=== PATIENT | female | born 1985 | race Hispanic/Latino ===

== ENCOUNTER 2023-04-23 23:21 | Emergency (ER) | payer SELFPAY ==
[2023-04-24] MEDS ORDERED: METOCLOPRAMIDE 10 MG/2mL INJ ONE (00:28)
[2023-04-24] MEDS ORDERED: NA CHLORIDE 0.9% 1,000 ML ONE (00:28)
[2023-04-24] MEDS ORDERED: DIPHENHYDRAMINE 50 MG/ML VIAL ONE (00:28)
[2023-04-24 00:43] LABS: Absolute Lymphocytes (CBC) 2.7 K/uL (0.7-4.9); Hematocrit 40.8 % (36.0-45.0); Lymphocytes % 29.4 % (15.3-44.8); MCV 88.3 fL (80-100); MPV 8.2 fL (7.6-11.3); Platelets 247 thou/uL (152-406); RBC Red Blood Cell Count 4.62 M/uL (3.86-4.86)
[2023-04-24 01:03] LABS: Albumin 3.4 g/dL (3.4-5.0); Bilirubin Total 0.5 mg/dL (0.2-1.0); Protein, Total 7.2 g/dL (6.4-8.2); Troponin High Sensitivity 5.1 pg/mL (<58.9)
--- NOTE | 2023-04-24 02:12 | EDPHYS ---
Physician Documentation [facility] Name: Ada Nash Age: 38 yrs Sex: Female : 1985 Arrival Date: 04/23/2023 Time: 23:21 Bed 5 Private MD: ED Physician Ras Cruz HPI: 04/23 23:38 This 38 yrs old Female presents to ER via Ambulatory with complaints of Chest Pain, ec2 Headache, Blurred Vision, High Blood Pressure. 23:52 Evaluation of chest tightness as well as headache and elevated blood pressure. States ec2 that she has been experiencing symptoms for approximately 1 week. States that the symptoms have been ongoing intermittent and progressed today which is what prompted evaluation today. Patient reports no vomiting, no diarrhea symptoms, no abdominal pain. States that the chest pain is more of a tightness and not an actual pain. Patient reports shortness of breath associated with this as well. Also complaining of a left-sided headache. States that she also feels some lightheadedness and dizziness.. Historical: - Allergies: 23:30 No Known Allergies; rv - Home Meds: 04/24 00:38 metoprolol tartrate 25 mg Oral tablet 1 tab 2 times per day [Active]; sertraline oral kl daily [Active]; - PMHx: 04/23 23:30 Hypertensive disorder; rv 04/24 00:38 Anxiety; kl - PSHx: 04/23 23:30 None; rv - Immunization history:: Adult Immunizations up to date. - Social history:: Smoking status: Patient denies any tobacco usage or history of. ROS: 23:52 Constitutional: as per hpi ec2 Exam: 23:52 Constitutional: GEN: NAD Head: atraumatic Eyes: EOMI Ears: External ears are ec2 normal. CV: regular rate LUNGS: no respiratory distress ABD: non-distended SKIN: no evidence of rashes MSK: no evidence of trauma NEURO: moves all extremities equally, cranial nerves II through XII intact, strength intact in all 4 extremities, normal [id number], negative pronator drift. Vital Signs: 23:28 BP 202 / 102; Pulse 104; Resp 19; Temp 98.3; Pulse Ox 100% ; Weight 122.47 kg; Height 5 rv ft. 3 in. ; 23:52 BP 152 / 73; Pulse 62; ec2 04/24 01:01 BP 153 / 90; Pulse 58; Resp 16 S; Pulse Ox 95% ; nw1 01:36 BP 144 / 96; Pulse 60; ec2 04/23 23:28 Body Mass Index 47.83 (122.47 kg, 160.02 cm) rv [place] Coma Score: 01:01 Eye Response: spontaneous(4). Motor Response: obeys commands(6). Verbal Response: nw1 oriented(5). Total: 15. MDM: 04/23 23:40 Patient medically screened. ec2 23:40 ED course: EKG independently reviewed and interpreted by me, shows normal sinus rhythm, ec2 rate of 92, no acute ST segment elevations, nonconcerning intervals.. 23:52 ED course: Patient arrives today for evaluation of multiple complaints. Examination ec2 remarkable for well-appearing nontoxic individual with reassuring cardiovascular, pulmonary and neurologic examination. Will obtain lab work, EKG, chest x-ray and treat the patient's symptoms. Currently considering process such as nonspecific headache syndrome, ACS, low suspicion for PE or dissection.. 04/24 01:02 ED course: On reassessment patient with improvement in her symptoms.. ec2 01:06 ED course: CBC and metabolic profile are reassuring, appropriate renal function noted. ec2 Troponin is within normal ranges. . 01:36 Data reviewed: vital signs. ED course: Chest x-ray independently reviewed and ec2 interpreted by me, shows borderline cardiomegaly.. 02:09 ED course: On reassessment patient reports complete resolution in her chest discomfort, ec2 headache and denies any active symptoms. Will discharge home. Return precautions given. I considered acute processes such as ACS, intracranial processes such as stroke and masses. I instructed her that she needs to follow-up with her primary care doctor to have further assessment for her borderline cardiomegaly. Return precautions given.. 04/23 23:52 Order name: CBC with Diff; Complete Time: 01:02 ec2 04/23 23:52 Order name: CMP; Complete Time: 01:05 ec2 04/23 23:52 Order name: Troponin HS; Complete Time: 01:05 ec2 04/23 23:52 Order name: CXR XRAY ec2 04/23 23:52 Order name: EKG; Complete Time: 23:53 ec2 04/23 23:52 Order name: EKG - Nurse/Tech; Complete Time: 00:37 ec2 Administered Medications: 00:36 Drug: diphenhydrAMINE IVP 25 mg IVP once Route: IVP; Site: right forearm; la4 00:37 Drug: NS 0.9% IV 1000 ml IV at 1 bolus Per protocol; 1000 mL bolus Route: IV; Rate: 1 la4 bolus; Site: right forearm; 00:37 Drug: metoCLOPramide IVP 10 mg IVP once; over 1 to 2 minutes Route: IVP; Site: left la4 forearm; Disposition Summary: 04/24/23 02:10 Discharge Ordered Condition: Stable ec2 Diagnosis - Essential (primary) hypertension ec2 - Headache ec2 - Chest pain, unspecified ec2 Discharge Instructions: - Discharge Summary Sheet ec2 - Nonspecific Chest Pain, Adult ec2 - General Headache Without Cause ec2 Forms: - Medication Reconciliation Form ec2 - Thank You Letter ec2 - Antibiotic Education ec2 - Prescription Opioid Use ec2 - Patient Portal Instructions ec2 - Leadership Thank You Letter ec2 Signatures: Dispatcher [employer] Deneen Joseph RN RN kl Vicente, Ronaldo, RN RN rv Corral, Edwin, MD MD ec2 Zenobia Mccarthy RN RN la4 Corrections: (The following items were deleted from the chart) 01:40 01:36 ED course: Chest x-ray independently reviewed and interpreted by me, shows no ec2 acute intrathoracic process.. ec2
--- NOTE | 2023-04-24 02:12 | ER ---
Nurse's Notes [facility] Name: Ada Nash Age: 38 yrs Sex: Female : 1985 Arrival Date: 04/23/2023 Time: 23:21 Bed 5 Private MD: Diagnosis: Essential (primary) hypertension;Headache;Chest pain, unspecified Presentation: 04/23 23:28 Chief complaint: Patient states: DIZZINESS FOR A FEW DAYS NOW, DENIES SOB, PALPITATIONS rv TODAY. DENIES CHEST PAIN. Coronavirus screen: At this time, the client does not indicate any symptoms associated with coronavirus-19. Ebola Screen: No symptoms or risks identified at this time. Initial Sepsis Screen: Does the patient meet any 2 criteria? No. Patient's initial sepsis screen is negative. Does the patient have a suspected source of infection? No. Patient's initial sepsis screen is negative. Risk Assessment: Do you want to hurt yourself or someone else? Patient reports no desire to harm self or others. Onset of symptoms was April 23, 2023. 23:28 Method Of Arrival: Ambulatory rv 23:28 Acuity: ARLINE 2 rv Triage Assessment: 23:30 General: Appears comfortable, Behavior is calm, cooperative. Pain: Denies pain. Neuro: rv Level of Consciousness is awake, alert, obeys commands, Oriented to person, place, time, situation. Cardiovascular: Capillary refill < 3 seconds Patient's skin is warm and dry. Chest pain is denied. Respiratory: Airway is patent Respiratory effort is even, unlabored. GI: No signs and/or symptoms were reported involving the gastrointestinal system. : No signs and/or symptoms were reported regarding the genitourinary system. Derm: Skin is intact. Historical: - Allergies: 23:30 No Known Allergies; rv - Home Meds: 04/24 00:38 metoprolol tartrate 25 mg Oral tablet 1 tab 2 times per day [Active]; sertraline oral kl daily [Active]; - PMHx: 04/23 23:30 Hypertensive disorder; rv 04/24 00:38 Anxiety; kl - PSHx: 04/23 23:30 None; rv - Immunization history:: Adult Immunizations up to date. - Social history:: Smoking status: Patient denies any tobacco usage or history of. Screenin:31 [facility] ED Fall Risk Assessment (Adult) History of falling in the last 3 months, rv including since admission No falls in past 3 months (0 pts) Score/Fall Risk Level 0 - 2 = Low Risk Oriented to surroundings, Maintained a safe environment, Educated pt \T\ family on fall prevention, incl call for assistance when getting out of bed, Assessed \T\ reinforced patient's understanding of fall precautions, Provided non-skid footwear, Hourly rounding (assess needs \T\ fall precautionary measures) done, Used ambulatory aids as needed (educated on \T\ assisted with), Used gait belt as appropriate. Abuse screen: Denies threats or abuse. Denies injuries from another. Nutritional screening: No deficits noted. Tuberculosis screening: No symptoms or risk factors identified. Assessment: 04/24 00:12 General: Appears in no apparent distress. obese, well groomed, well developed, well nw1 nourished, Behavior is calm, cooperative, appropriate for age. 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 Full function Gait is steady, Speech is normal, Facial symmetry appears normal, Pupils are PERRLA, Intact Reports headache in left. Cardiovascular: Reports chest pain, Chest pain is described as Pain is 7 out of 10 on a pain scale. Cardiovascular: Heart tones present Capillary refill < 3 seconds Pulses are all present. Parent/caregiver reports patient has had chest pain, describes pain as tight since 1 week. Respiratory:. 00:18 GI: No signs and/or symptoms were reported involving the gastrointestinal system. nw1 Abdomen is obese, Bowel sounds present X 4 quads. : No signs and/or symptoms were reported regarding the genitourinary system. Derm: No signs and/or symptoms reported regarding the dermatologic system. Skin is intact, is healthy with good turgor, Skin is dry, Skin is pink, warm \T\ dry. Skin temperature is warm. Musculoskeletal: No signs and/or symptoms reported regarding the musculoskeletal system. Vital Signs: 04/23 23:28 BP 202 / 102; Pulse 104; Resp 19; Temp 98.3; Pulse Ox 100% ; Weight 122.47 kg; Height 5 rv ft. 3 in. ; 23:52 BP 152 / 73; Pulse 62; ec2 04/24 01:01 BP 153 / 90; Pulse 58; Resp 16 S; Pulse Ox 95% ; nw1 01:36 BP 144 / 96; Pulse 60; ec2 04/23 23:28 Body Mass Index 47.83 (122.47 kg, 160.02 cm) rv [place] Coma Score: 01:01 Eye Response: spontaneous(4). Motor Response: obeys commands(6). Verbal Response: nw1 oriented(5). Total: 15. ED Course: 04/23 23:24 Patient arrived in ED. jj6 23:28 Ras Cruz MD is Attending Physician. ec2 23:30 Triage completed. rv 23:31 Arm band placed on right wrist. rv 23:31 Patient has correct armband on for positive identification. Client placed on continuous rv cardiac and pulse oximetry monitoring. NIBP monitoring applied. vehicle monitor technician on. 23:41 EKG completed in triage. Results shown to MD. 04/24 00:11 Zenobia Mccarthy, RN is Primary Nurse. la4 00:18 Provided Education on: POC. nw1 00:49 CXR XRAY In Process Unspecified. EDMS 01:01 Inserted saline lock: 18 gauge in right forearm, using aseptic technique. Blood nw1 collected. 01:01 No provider procedures requiring assistance completed. Patient maintains SpO2 nw1 saturation greater than 95% on room air. 02:30 IV discontinued, intact, bleeding controlled, No redness/swelling at site. Pressure nw1 dressing applied. Administered Medications: 00:36 Drug: diphenhydrAMINE IVP 25 mg IVP once Route: IVP; Site: right forearm; la4 00:37 Drug: NS 0.9% IV 1000 ml IV at 1 bolus Per protocol; 1000 mL bolus Route: IV; Rate: 1 la4 bolus; Site: right forearm; 00:37 Drug: metoCLOPramide IVP 10 mg IVP once; over 1 to 2 minutes Route: IVP; Site: left la4 forearm; Medication: 04/23 23:31 VIS not applicable for this client. rv Outcome: 04/24 02:10 Discharge ordered by . ec2 02:30 Discharged to home with family, nw1 02:30 Condition: improved 02:30 Discharge instructions given to patient, Instructed on discharge instructions, follow up and referral plans. Demonstrated understanding of instructions, follow-up care, 02:31 Patient left the ED. nw1 Signatures: Dispatcher [employer] Deneen Joseph, RN RN Edward Adhikari RN RN Leyla Quispe Edwin, MD MD ec2 Zenobia Mccarthy RN RN la4 Williams, Nicole, RN RN nw1 Corrections: (The following items were deleted from the chart) 00:21 00:14 Cardiovascular: Heart tones present Capillary refill < 3 seconds Pulses are all nw1 present. nw1
[2023-04-24 03:22] VITALS: TEMP 98.3
[2023-04-24 03:34] VITALS: O2SAT 95
[2023-04-24 03:38] VITALS: BP 144/96
--- NOTE | 2023-04-25 12:45 | RAD REPORT ---
EXAM DESCRIPTION: XR Chest, 1 View CLINICAL HISTORY: The patient is 38 years old and is Female; CHEST PAIN TECHNIQUE: Frontal view of the chest. COMPARISON: No relevant prior studies available. FINDINGS: Lungs: Mildly prominent interstitial markings. No consolidation. No consolidation. Pleural space: Unremarkable. No pneumothorax. Heart: Unremarkable. Mediastinum: Unremarkable. Normal mediastinal contour. Bones/joints: No acute findings. IMPRESSION: Mildly prominent interstitial markings. No consolidation. Electronically signed by: Jonathan Leal MD 04/24/2023 01:19 AM TICKET WORKER Due to temporary technical issues with the PACS/Fluency reporting system, reports are being signed by the in house radiologist without review as a courtesy to ensure prompt reporting. The interpreting r adiologist is fully responsible for the content of the report.
--- NOTE | 2023-04-27 17:04 | EKG ---
Test Date: 2023-04-23 Test Time: 23:32:20 Mixing Tank Operator: ALEJO MEASUREMENT RESULTS: Intervals: Rate: 92 ID: [id number] QRSD: 96 QT: 376 QTc: 464 [place]: P: 49 ID: [id number] QRS: -11 T: 29 INTERPRETIVE STATEMENTS: Normal sinus rhythm Normal ECG No previous ECG available for comparison Electronically Signed On 04-27-23 16:54:44 SUPERVISOR SHEET MANUFACTURING by Malick Schulte
== END 2023-04-24 02:31 | disposition home or self-care (01) ==
LOC: ER 23:21
DX: R07.9 Chest pain, unspecified (principal); I10 Essential (primary) hypertension; R51.9 Headache, unspecified; F41.9 Anxiety disorder, unspecified
CPT/HCPCS: 36415; 71045; 80053; 84484; 85025; 93005; 99285; J1200; J2765; J7030

== ENCOUNTER 2024-04-03 16:16 | Emergency (ER) | payer SELFPAY ==
[2024-04-03 17:36] LABS: Absolute Eosinophils 0.2 K/uL (0-0.5); Absolute Lymphocytes (CBC) 2.3 K/uL (0.7-4.9); Absolute Monocytes 0.4 K/uL (0.1-1.3); Absolute Neutrophil 4.7 K/uL (1.8-8.0); Basophils % 0.5 % (0-1.3); Eosinophils % 2.6 % (0-4.4); Hematocrit 41.9 % (36.0-45.0); Hemoglobin 14.4 g/dL (12.0-15.0); Lymphocytes % 30.4 % (15.3-44.8); MCH 30.3 pg (27.0-35.0); MCHC 34.5 g/dL (32.0-36.0); MCV 87.9 fL (80-100); MPV 7.6 fL (7.6-11.3); Monocytes % 5.6 % (3.3-12.3); Neutrophils % 60.9 % (41.7-73.7); Nucleated Red Blood Cells % 0.1 % (0-0); Platelets 230 thou/uL (152-406); RBC Red Blood Cell Count 4.76 M/uL (3.86-4.86); Red Cell Distribution Width 13.5 % (12.1-15.2)
--- NOTE | 2024-04-03 17:39 | RAD REPORT ---
EXAM: CT Head Brain Wo Cont HISTORY: HEADACHE COMPARISON: None TECHNIQUE: Multiple contiguous axial images were obtained for a CT of the brain without contrast. Sag ittal and coronal reformats were performed. One or more of the following dose reduction techniques were used: Automated exposure control, adjus tment of the mA and kV according to patient size, and iterative reconstruction. Unless otherwise specified, incidental findings do not require dedicated imaging follow-up. FINDINGS: No evidence of hydrocephalus, intracranial hemorrhage, or extra-axial fluid collection. The brain is normal in morphology. Partially empty sella incidentally noted. The calvarium is intact. The visualized paranasal sinuses and mastoid air cells are essentially clear . IMPRESSION: No evidence of acute intracranial abnormality.
[2024-04-03 17:54] LABS: ALT/SGPT 48 U/L (13-56); AST/SGOT 20 U/L (15-37); Albumin 3.4 g/dL (3.4-5.0); Albumin/Globulin Ratio 0.9 (1.1-1.8); Alkaline Phosphatase 78 U/L (45-117); Anion Gap 8.6 mEq/L (5.0-15.0); BUN Blood Urea Nitrogen 11 mg/dL (7-18); Bicarbonate 26 mEq/L (21-32); Bilirubin Total 0.5 mg/dL (0.2-1.0); Globulin 3.7 g/dL (2.3-3.5); Glomerular Filtration Rate 121 ml/min (=/>90); Glucose Level 167 mg/dL (74-106); Potassium 3.6 mEq/L (3.5-5.1); Protein, Total 7.1 g/dL (6.4-8.2); Sodium Level 138 mEq/L (136-145); Troponin High Sensitivity 4.8 pg/mL (<58.9)
[2024-04-03 17:58] LABS: Specific Gravity 1.021 (1.005-1.030); Sqamous Epithelial <5 /HPF (None Seen); Urine Bacteria <20 /HPF (<20); Urine Bilirubin NEGATIVE (Negative); Urine Blood Trace (Negative); Urine Clarity Extremely Turbid (Clear); Urine Color Light-Yellow (Yellow); Urine Crystals Unidentified Few /HPF (None Seen); Urine Culture Reflex Order NOT NEEDED; Urine Glucose NEGATIVE (Negative); Urine Ketones NEGATIVE (Negative); Urine Microscopic Reflex YN ORDER UMIC; Urine Mucus Slight /HPF (None Seen); Urine Nitrite NEGATIVE (Negative); Urine Protein TRACE (Negative); Urine Urobilinogen 1+ (Normal); Urine WBC <5 /HPF (<5); Urine pH 6.5 (5.0-7.0)
[2024-04-03 18:04] LABS: Bilirubin Direct < 0.2 mg/dL (0-0.2); Bilirubin Indirect, Calculated 0.3 mg/dL (0.2-0.8)
[2024-04-03] MEDS ORDERED: DIPHENHYDRAMINE 50 MG/ML VIAL ONE (18:18)
[2024-04-03] MEDS ORDERED: dexAMETHasone 10 MG/ML VIAL ONE (18:18)
[2024-04-03] MEDS ORDERED: KETOROLAC 30 MG/ML INJ ONE (18:18)
[2024-04-03] MEDS ORDERED: NA CHLORIDE 0.9% 50 ML ONE (18:19)
[2024-04-03] MEDS ORDERED: NA CHLORIDE 0.9% 1,000 ML ONE (18:19)
[2024-04-03] MEDS ORDERED: METOCLOPRAMIDE 10 MG/2mL INJ ONE (18:19)
--- NOTE | 2024-04-03 19:13 | ER ---
[facility] Name: Ada Nash Age: 39 yrs Sex: Female : 1985 Arrival Date: 04/03/2024 Time: 16:16 Bed 10 Private MD: Diagnosis: Headache Presentation: 04/03 17:05 Chief complaint: Patient states: I have had a headache for the past few days. It is on jb4 the left side of my head and front. It is a pressure pain the my vision gets blurry. Coronavirus screen: At this time, the client does not indicate any symptoms associated with coronavirus-19. Ebola Screen: No symptoms or risks identified at this time. Initial Sepsis Screen: Does the patient meet any 2 criteria? No. Patient's initial sepsis screen is negative. Does the patient have a suspected source of infection? No. Patient's initial sepsis screen is negative. Risk Assessment: Do you want to hurt yourself or someone else? Patient reports no desire to harm self or others. Onset of symptoms was April 03, 2024. Transition of care: patient was not received from another setting of care. 17:05 Method Of Arrival: Ambulatory jb4 17:05 Acuity: ARLINE 3 jb4 Triage Assessment: 17:07 Headache History: Denies prior headaches. General: Appears in no apparent distress. jb4 uncomfortable, Behavior is calm, cooperative, appropriate for age. Pain: Complains of pain in forehead and left temporal area Pain does not radiate. Pain currently is 8 out of 10 on a pain scale. Quality of pain is described as heavy Pain began over 3 days ago. Also complains of photophobia. Neuro: Level of Consciousness is awake, alert, obeys commands, Oriented to person, place, time, situation. Cardiovascular: Patient's skin is warm and dry. Respiratory: Airway is patent Respiratory effort is even, unlabored, Respiratory pattern is regular, symmetrical. Derm: Skin is intact, Skin is pink, warm \T\ dry. Musculoskeletal: Circulation, motion, and sensation intact. Range of motion: intact in all extremities. Historical: - Allergies: 17:07 No Known Allergies; jb4 - Home Meds: 17:07 metoprolol tartrate 25 mg Oral tablet 1 tab 2 times per day [Active]; sertraline oral jb4 daily [Active]; - PMHx: 17:07 Anxiety; Hypertensive disorder; jb4 - PSHx: 17:07 ; jb4 - Immunization history:: Adult Immunizations up to date. - Infectious Disease History:: Denies. - Social history:: Smoking status: Patient denies any tobacco usage or history of. Patient uses alcohol, but reports only rare drinking. Screenin:04 [facility] ED Fall Risk Assessment (Adult) History of falling in the last 3 months, db including since admission No falls in past 3 months (0 pts) Confusion or Disorientation No (0 pts) Intoxicated or Sedated No (0 pts) Impaired Gait No (0 pts) Mobility Assist Device Used No (0 pt) Altered Elimination No (0 pt) Score/Fall Risk Level 0 - 2 = Low Risk Oriented to surroundings, Maintained a safe environment. Abuse screen: Denies threats or abuse. Denies injuries from another. Nutritional screening: No deficits noted. Tuberculosis screening: No symptoms or risk factors identified. Assessment: 18:04 Reassessment: Patient appears in no apparent distress at this time. Patient and/or db family updated on plan of care and expected duration. Pain level reassessed. Patient is alert, oriented x 3, equal unlabored respirations, skin warm/dry/pink. General: Appears in no apparent distress. comfortable, Behavior is calm, cooperative. Pain: Complains of pain in left temporal area and forehead. Neuro: Level of Consciousness is awake, alert, obeys commands, Oriented to person, place, time, situation. Cardiovascular: Rhythm is sinus rhythm. Respiratory: Airway is patent Respiratory effort is even, unlabored, Respiratory pattern is regular, symmetrical. 19:31 Reassessment: Patient appears in no apparent distress at this time. Patient and/or jb4 family updated on plan of care and expected duration. Pain level reassessed. Patient is alert, oriented x 3, equal unlabored respirations, skin warm/dry/pink. Patient states feeling better. Vital Signs: 17:05 BP 168 / 85; Pulse 73; Resp 16; Temp 98.4(O); Pulse Ox 100% on R/A; Weight 121.56 kg jb4 (R); Height 5 ft. 4 in. (R); Pain 8/10; 18:01 BP 136 / 83; Pulse 62; Resp 18; Pulse Ox 99% on R/A; db 19:31 BP 143 / 80; Pulse 76; Resp 16; Pulse Ox 100% on R/A; jb4 17:05 Body Mass Index 46.00 (121.56 kg, 162.56 cm) jb4 17:05 Pain Scale: Adult jb4 [place] Coma Score: 19:12 Eye Response: spontaneous(4). Motor Response: obeys commands(6). Verbal Response: kb oriented(5). Total: 15. ED Course: 16:23 Patient arrived in ED. mg5 16:35 Kailyn Cosby FNP-C [facility]. kb 16:35 Cheng Morales MD is Attending Physician. kb 17:07 Triage completed. jb4 17:07 Arm band placed on right wrist. jb4 17:24 Basic Metabolic Panel Sent. bc6 17:24 CBC with Diff Sent. bc6 17:24 Hepatic Function Sent. bc6 17:24 Magnesium Sent. bc6 17:24 Troponin High Sensitivity Sent. bc6 17:24 Initial lab(s) drawn, by az, sent to lab. Inserted saline lock: 20 gauge in left bc6 antecubital area, using aseptic technique. Blood collected. Flushed with 10 mL NS. 17:31 Kelsey Hadley, RN is Primary Nurse. db 17:32 CT Head Brain wo Cont In Process Unspecified. EDMS 18:00 Urine collected: clean catch specimen, EKG done, reviewed by Kailyn HARDY. db 18:04 Patient has correct armband on for positive identification. Bed in low position. Call db light in reach. Side rails up X 1. school bus monitor on. Pulse ox on. NIBP on. Warm blanket given. 18:32 Lights dimmed. db 19:31 Provided Education on: discharge instructions.. jb4 19:31 No provider procedures requiring assistance completed. IV discontinued, intact, jb4 bleeding controlled, No redness/swelling at site. Pressure dressing applied. Administered Medications: 18:22 Drug: NS 0.9% IV 1000 ml IV at 1000 ml once; to be given as a bolus over 60 minutes db Route: IV; Rate: 1000 ml; Site: left antecubital; 19:33 Follow up: Response: No adverse reaction; IV Status: Completed infusion; IV Intake: jb4 900ml 18:23 Drug: Ketorolac IVP 15 mg IVP once Route: IVP; Site: left antecubital; db 18:24 Drug: metoCLOPramide IVP 10 mg IVP once; over 1 to 2 minutes Route: IVP; Site: left db antecubital; 18:25 Drug: diphenhydrAMINE IVP 12.5 mg IVP once Route: IVP; Site: left antecubital; db 18:27 Drug: Decadron - Dexamethasone IVP 10 mg IVP once Route: IVP; Site: left antecubital; db Medication: 18:04 VIS not applicable for this client. db Intake: 19:33 IV: 900ml; Total: 900ml. jb4 Outcome: 19:12 Discharge ordered by . kush 19:31 Discharged to home ambulatory, jb4 19:31 Condition: stable 19:31 Discharge instructions given to patient, Instructed on discharge instructions, follow up and referral plans. Demonstrated understanding of instructions, follow-up care, 19:32 Patient left the ED. jb4 Signatures: Dispatcher [employer] EDMN Kailyn Cosby, ANTONY WILKINS-Enio Montiel, RN RN jb4 Kelsey Hadley, RN RN db Farida Downs 6 Lizz Coats mg5 Corrections: (The following items were deleted from the chart) 17:08 17:07 PSHx: None; jb4 jb4 17:11 17:05 BP 168 / 85; Pulse 73bpm; Resp 16bpm; Pulse Ox 100% RA; 121.56 kg Reported; jb4 Height 5 ft. 4 in. Reported; BMI: 46.0; Pain 8/10, Adult; jb4
--- NOTE | 2024-04-03 19:13 | EDPHYS ---
Physician Documentation [facility] Name: Ada Nash Age: 39 yrs Sex: Female : 1985 Arrival Date: 04/03/2024 Time: 16:16 Bed 10 Private MD: ED Physician Cheng Morales HPI: 04/03 19:10 This 39 yrs old Female presents to ER via Ambulatory with complaints of kb Headache. 19:10 Pt is a 39 year old female with a history of hypertension, anxiety and high cholesterol kb who presents for a headache that started over a week ago, but no more than 2 weeks ago. States the pain is constant, has not gotten any better or worse. Came in today because she is tired of dealing with it. Denies chest pain. States she has not taken her amlodipine or her atorvastatin in 1 month. Patient currently taking sertraline and metoprolol only.. Historical: - Allergies: 17:07 No Known Allergies; jb4 - Home Meds: 17:07 metoprolol tartrate 25 mg Oral tablet 1 tab 2 times per day [Active]; sertraline oral jb4 daily [Active]; - PMHx: 17:07 Anxiety; Hypertensive disorder; jb4 - PSHx: 17:07 ; jb4 - Immunization history:: Adult Immunizations up to date. - Infectious Disease History:: Denies. - Social history:: Smoking status: Patient denies any tobacco usage or history of. Patient uses alcohol, but reports only rare drinking. ROS: 19:10 Constitutional: As per HPI kb Exam: 18:29 Constitutional: This is a well developed, well nourished patient who is awake, alert, kb and in no acute distress. Head/Face: Normocephalic, atraumatic. Eyes: Pupils equal round and reactive to light, extra-ocular motions intact. Lids and lashes normal. Conjunctiva and sclera are non-icteric and not injected. Cornea within normal limits. Periorbital areas with no swelling, redness, or edema. ENT: Moist Mucous membranes Cardiovascular: Regular rate Respiratory: Respirations even and unlabored. No increased work of breathing. Talking in full sentences Skin: Warm, dry with normal turgor. Normal color. MS/ Extremity: Pulses equal, no cyanosis. Neurovascular intact. Full, normal range of motion. Neuro: Awake and alert, GCS 15, oriented to person, place, time, and situation. 18:29 ECG was reviewed by the Attending Physician. Vital Signs: 17:05 BP 168 / 85; Pulse 73; Resp 16; Temp 98.4(O); Pulse Ox 100% on R/A; Weight 121.56 kg jb4 (R); Height 5 ft. 4 in. (R); Pain 8/10; 18:01 BP 136 / 83; Pulse 62; Resp 18; Pulse Ox 99% on R/A; db 19:31 BP 143 / 80; Pulse 76; Resp 16; Pulse Ox 100% on R/A; jb4 17:05 Body Mass Index 46.00 (121.56 kg, 162.56 cm) jb4 17:05 Pain Scale: Adult jb4 Manuel Coma Score: 19:12 Eye Response: spontaneous(4). Motor Response: obeys commands(6). Verbal Response: kb oriented(5). Total: 15. MDM: 16:35 Medical Screening Exam initiated kb 19:12 Differential diagnosis: cluster headache, migraine, tension headache. Data reviewed: kb vital signs, nurses notes. Historians other than the Patient: Family Member: family. Counseling: I had a detailed discussion with the patient and/or guardian regarding the historical points, exam findings, and any diagnostic results supporting the discharge/admit diagnosis, lab results, radiology results, the need for outpatient follow up, a family practitioner, a neurologist, to return to the emergency department if symptoms worsen or persist or if there are any questions or concerns that arise at home. Response to treatment: the patient's symptoms have markedly improved after treatment. 04/03 17:09 Order name: Basic Metabolic Panel; Complete Time: 18:05 kb 04/03 17:09 Order name: CBC with Diff; Complete Time: 17:39 kb 04/03 17:09 Order name: Hepatic Function; Complete Time: 18:05 kb 04/03 17:09 Order name: Magnesium; Complete Time: 18:05 kb 04/03 17:09 Order name: Troponin High Sensitivity; Complete Time: 18:05 kb 04/03 17:09 Order name: Urinalysis w/ reflexes; Complete Time: 17:59 kb 04/03 17:09 Order name: CT Head Brain wo Cont; Complete Time: 17:40 kb 04/03 17:09 Order name: EKG; Complete Time: 17:10 kb 04/03 17:09 Order name: Cardiac monitoring; Complete Time: 18:00 kb 04/03 17:09 Order name: EKG - Nurse/Tech; Complete Time: 18:00 kb 04/03 17:09 Order name: IV Saline Lock; Complete Time: 17:24 kb 04/03 17:09 Order name: Labs collected and sent; Complete Time: 17:24 kb 04/03 17:09 Order name: NPO; Complete Time: 17:24 kb 04/03 17:09 Order name: O2 Per Protocol; Complete Time: 18:00 kb 04/03 17:09 Order name: O2 Sat Monitoring; Complete Time: 18:00 kb EC:29 Rate is 65 beats/min. Rhythm is regular. QRS [place] is Normal. ID interval is normal at kb 154 msec. QRS interval is normal at 84 msec. QT interval is normal at 430 msec. Administered Medications: 18:22 Drug: NS 0.9% IV 1000 ml IV at 1000 ml once; to be given as a bolus over 60 minutes db Route: IV; Rate: 1000 ml; Site: left antecubital; 19:33 Follow up: Response: No adverse reaction; IV Status: Completed infusion; IV Intake: jb4 900ml 18:23 Drug: Ketorolac IVP 15 mg IVP once Route: IVP; Site: left antecubital; db 18:24 Drug: metoCLOPramide IVP 10 mg IVP once; over 1 to 2 minutes Route: IVP; Site: left db antecubital; 18:25 Drug: diphenhydrAMINE IVP 12.5 mg IVP once Route: IVP; Site: left antecubital; db 18:27 Drug: Decadron - Dexamethasone IVP 10 mg IVP once Route: IVP; Site: left antecubital; db Disposition Summary: 04/03/24 19:12 Discharge Ordered Notes: Location: Home kb Condition: Stable kb Diagnosis - Headache kb Followup: kb - With: Emergency Department - When: As needed - Reason: Worsening of condition Followup: kb - With: Private Physician - When: 2 - 3 days - Reason: Recheck today's complaints, Continuance of care, Re-evaluation by your physician Discharge Instructions: - Discharge Summary Sheet kb - General Headache Without Cause, [id number] kb Forms: - Medication Reconciliation Form kb - Antibiotic Education kb - Prescription Opioid Use kb - Patient Portal Instructions kb - Leadership Thank You Letter kb Signatures: Dispatcher [employer] EDMS Kailyn Cosby, [employer] FRANKY-Enio Montiel, RN RN jb4 Kelsey Hadley, RN RN db Corrections: (The following items were deleted from the chart) 17:08 17:07 PSHx: None; jb4 jb4 17:10 17:10 BASIC METABOLIC PANEL+C.LAB.BRZ ordered. EDMS EDMS 17:10 17:10 CBC+H.LAB.BRZ ordered. EDMS EDMS 17:10 17:10 HEPATIC FUNCTION+C.LAB.BRZ ordered. EDMS EDMS 17:10 17:10 MAGNESIUM+C.LAB.BRZ ordered. EDMS EDMS 17:10 17:10 Troponin High Sensitivity+C.LAB.BRZ ordered. EDMS EDMS 17:10 17:10 Urinalysis+U.LAB.BRZ ordered. EDMS EDMS
[2024-04-03 19:57] VITALS: TEMP 98.4
[2024-04-03 20:08] VITALS: BP 143/80; O2SAT 100
--- NOTE | 2024-04-04 14:48 | EKG ---
Test Date: 2024-04-03 Test Time: 17:56:36 Training Coordinator: EMELY MEASUREMENT RESULTS: Intervals: Rate: 65 SD: 154 QRSD: 84 QT: 414 QTc: 430 [place]: P: 24 SD: 154 QRS: 2 T: 7 INTERPRETIVE STATEMENTS: Normal sinus rhythm Cannot rule out Anterior infarct, age undetermined Abnormal ECG Compared to ECG 04/23/2023 23:32:20 Myocardial infarct finding now present Electronically Signed On 04-04-24 14:45:55 CDT by Malick Schulte
== END 2024-04-03 19:32 | disposition home or self-care (01) ==
LOC: ER 16:16
DX: R51.9 Headache, unspecified (principal); I10 Essential (primary) hypertension; F41.9 Anxiety disorder, unspecified
CPT/HCPCS: 36415; 70450; 80048; 80076; 81001; 83735; 84484; 85025; 93005; 96361; 96374; 96375; 99285; J1100; J1200; J2765; J7030